=== PATIENT | female | born 1960 | race Caucasian/White ===

== ENCOUNTER → 2017-01-14 | Outpatient (CLI) | payer BC ==
[~2017-01-14] MED LIST: CLARITIN 1010 MG/TAB PO; PROZAC40 MG PO
== END ==
LOC: MC.RAD 08:40
DX: Z12.31 Encounter for screening mammogram for malignant neoplasm of breast (principal)

== ENCOUNTER → 2019-03-20 | Outpatient (CLI) | payer BC | LOC: COL.VAS 07:23 | DX: I08.3 Combined rheumatic disorders of mitral, aortic and tricuspid valves (principal); R60.0 Localized edema ==

== ENCOUNTER 2019-04-12 09:38 | Inpatient (IN) | payer BC ==
[~2019-04-12] VITALS: Ht 160 cm; Wt 69.3 kg
[2019-04-12] VITALS (14 sets, daily range): BP systolic 100–144; BP diastolic 46–83; PULSE 83–98; TEMP 97.9–100
[2019-04-12 10:41] LABS: BASO % 0.3 % (0.0-2.0); EOS # 0.1 (0.0-0.7); GRAN # 4.6 (1.4-6.5); GRAN % 68.7 % (42.2-75.2); LYMPH # 1.5 (1.2-3.4); LYMPH % 22.3 % (20.0-51.0); MEAN CELL VOLUME 72 fl (80.0-100.0); MEAN CORPUSCULAR HGB CONC 26 g/dl (33.0-37.0); MEAN PLATELET VOLUME 9.8 fl (7.4-10.4); MONO # 0.5 (0.1-0.6); MONO % 7.3 % (1.7-9.3); PLATELET COUNT 346 K/mm3 (130-400); RED BLOOD COUNT 2.03 M/mm3 (4.10-5.30); REDCELL DISTRIBUTION WIDTH-CV 23.1 % (11.5-14.5)
[2019-04-12] MEDS ORDERED: DULCOLAX TAB5 MG PO (10:47)
[2019-04-12] MEDS ORDERED: LASIX 20MG TABL20 MG PO (10:47)
[2019-04-12 10:48] LABS: MEAN CORPUSCULAR HEMOGLOBIN 19 pg (27.0-31.0)
[2019-04-12] MEDS ORDERED: MULTIVITAMIN FO1 CAP PO (10:48)
[2019-04-12] MEDS ORDERED: HAIRSKINNAILS PO (10:48)
[2019-04-12 10:49] LABS: ALANINE AMINOTRANSFERASE 19 U/L (9-52); ALBUMIN 4.1 gm/dL (3.5-5.0); ALKALINE PHOSPHATASE 86 U/L (50-136); ANION GAP 12 mmol/L (7-16); AST,SGOT 41 U/L (15-37); BILIRUBIN,TOTAL 0.8 mg/dL (0.0-1.0); BLOOD UREA NITROGEN 15 mg/dL (7-17); CALCIUM 9.1 mg/dL (8.4-10.2); CARBON DIOXIDE 23 mmol/L (22-30); CHLORIDE 104 mmol/L (98-107); CREATININE, serum 0.84 (0.52-1.25); GLUCOSE 100 mg/dL (74-106); HEMOGLOBIN 3.8 g/dl (12.5-16.0); INR 1.1 (0.8-3.0); POTASSIUM 3.8 mmol/L (3.4-5.0); PROTHROMBIN TIME 12.9 SECONDS (9.7-12.8); SODIUM 139 mmol/L (137-145); TOTAL PROTEIN 7.1 gm/dL (6.4-8.2)
[2019-04-12 10:50] LABS: HEMATOCRIT 14.6 % (37.0-47.0)
[2019-04-12 11:01] LABS: TROPONIN-I < 0.012 ng/mL (0.000-0.035)
[2019-04-12 11:23] LABS: IRON,SERUM < 10 ug/dL (35-150)
[2019-04-12 11:32] LABS: TOTAL IRON BINDING CAPACITY 465 ug/dL (265-497)
[2019-04-12] MEDS ORDERED: KLOR-CON SPRIN10 MEQ PO (12:26)
--- NOTE | 2019-04-12 12:30 | NUR ---
Pt arrived to room 319 at this time. She is A/O x4. She is ambulatory, reports some SOB but no dizziness. No pain reported at this time. Pt has two IV's one to each hand, flush without complications. POC discussed with patient who verbalizes understanding. Has no needs at this time. Call light within reach.
--- NOTE | 2019-04-12 18:30 | NUR ---
Report received at bedside from Medina VARELA. PT has family at bedside and is receiving blood transfusion at this time. PT denies wants/needs and has no complaints that need to be addressed. Call light within reach. Will continue to monitor.
--- NOTE | 2019-04-12 19:18 | NUR ---
Patient is A/O. She is resting in bed with two daughters at bedside. Patient just finish receiving 1 unit of blood because patient Hgb was at 3.8 this afternoon. Patient denies any pain or objective allergic reaction to blood. There are no subjective reaction to the blood noted. Patient signed consent for colonoscopy-endoscopy procedure for tomorrow to find any source of bleeding. Patient verbalize she understand the procedure.
--- NOTE | 2019-04-12 19:21 | NUR ---
Second unit of blood started at this time. Protocol followed, verified blood with AVERY Chance. S/sx's of transfusion reaction discussed with patient who verbalizes understanding. This nurse will remain at bedside for first 15 minutes.
--- NOTE | 2019-04-12 19:59 | NUR ---
PT educated on bowel prep instructions, purpose of bowel prep, NPO at midnight, and only clear liquids by mouth with no red dyes. PT states understanding and medication education form provided to PT.
--- NOTE | 2019-04-12 23:00 | NUR ---
PT blood transfusion completed with no s/s of adverse reactions noted. PT laying in bed finishing her bowel prep with no wants/needs at this time. Family at bedside. Call light within reach. Will continue to monitor.
[2019-04-12 23:16] LABS: FOLATE (FOLIC ACID) >20.0 ng/mL (7.0-31.4)
[2019-04-12 23:37] LABS: TRANSFERRIN 347 mg/dL (192-382)
[2019-04-13] VITALS (12 sets, daily range): BP systolic 11–139; BP diastolic 45–63; PULSE 79–88; TEMP 98.1–99
--- NOTE | 2019-04-13 01:35 | NUR ---
PT family rpeorts that PT has blood in the toilet after BM. This singer songwriter notes a light amount of blood colored water in toilet and PT states that she noted spotting on the toilet paper. PT rpeorts Hx of hemmorrhoids and colonoscopy om the AM for blood with toileting. PT assessed and there is no active bleeding noted from client's rectum nor any dried blood on client's buttocks or inside cleft of buttocks. There is a small amount of dried blood noted on PT's underwear. PT and family educated on bleeding and hemmorrhoids as well as to notify this singer songwriter is client has active bleeding noted or blood stains on bedding whren PT gets up to use toilet. PT and family state understanding of education.
--- NOTE | 2019-04-13 03:44 | NUR ---
PT resting in bed and opens eyes as this medical technical writer enters. PT denies any pain or needs/wants at this time. Will continue to monitor. PT states that she has no active bleed from her rectum.
[2019-04-13 03:55] LABS: BASO # 0.1 (0.0-0.2); BASO % 0.7 % (0.0-2.0); EOS # 0.1 (0.0-0.7); EOS % 1.4 % (0-4.0); GRAN # 4.6 (1.4-6.5); GRAN % 65.9 % (42.2-75.2); LYMPH # 1.6 (1.2-3.4); MEAN CELL VOLUME 76 fl (80.0-100.0); MEAN CORPUSCULAR HGB CONC 30 g/dl (33.0-37.0); MEAN PLATELET VOLUME 9.7 fl (7.4-10.4); MONO # 0.6 (0.1-0.6); MONO % 8.4 % (1.7-9.3); PLATELET COUNT 278 K/mm3 (130-400); RED BLOOD COUNT 2.51 M/mm3 (4.10-5.30); REDCELL DISTRIBUTION WIDTH-CV 22.8 % (11.5-14.5)
[2019-04-13 04:00] LABS: CALCIUM 8.3 mg/dL (8.4-10.2); CREATININE, serum 0.8 (0.52-1.25); POTASSIUM 3.7 mmol/L (3.4-5.0)
[2019-04-13 04:01] LABS: HEMOGLOBIN 5.7 g/dl (12.5-16.0); MEAN CORPUSCULAR HEMOGLOBIN 23 pg (27.0-31.0)
--- NOTE | 2019-04-13 04:02 | NUR ---
Pt received from lab that PT's HgB is now 5.8 which is up from yesterday am HgB of 3.8
--- NOTE | 2019-04-13 07:06 | NUR ---
PT report given at bedside to Maynor VARELA
--- NOTE | 2019-04-13 09:09 | NUR ---
Initial visit; Patient thanked Brand Mgr for looking in on her and offering God's blessings.
--- NOTE | 2019-04-13 09:21 | NUR ---
Pt awake and alert, receiving blood, no C/O pain at this time, shift assessments complete, left Pt call light in reach, bed in lowest position.
--- NOTE | 2019-04-13 11:18 | NUR ---
Lead Former met with patient and patient's daughter, Gay to discuss discharge planning. Patient lives in [place] with her , Marcel (ph#[phone]) [address] Fry for primary care. Patient obtains medications from [facility] with no difficulties. Patient does not use any DME and is independent with ADLS. Patient reports she believes she has Advance Directives set up but SW did not locate any in EMR. Patient plans on returning home upon discharge with family providing transportation. No additional needs at this time.
[2019-04-13 13:21] LABS: HEMATOCRIT 26.1 % (37.0-47.0); HEMOGLOBIN 7.8 g/dl (12.5-16.0)
--- NOTE | 2019-04-13 19:34 | NUR ---
Pt resting in the room after her procedures this afternoon, Pt has had several bloody bowel movements since returning, last bowel movement this evening shows less blood than earlier. VS have remained stable.
--- NOTE | 2019-04-13 20:30 | NUR ---
Shift assessment complete. Denies pain. Hemorrhoids still actively bleeding per pt statement. Family at bedside, all questions answered. IV in left hand infiltrated during last few ml's of iron infusion per day shift RN. Site reddened, and slightly swollen. IV removed and extremity elevated, warm compress applied. Primary doctor, Dr. Fry, at bedside. Updated per pt and family request. Patient and family also requesting that IV be left out for the night. Dr. Fry agrees. Will call BOBO Malik to request order for IV to be left out. Patient and family agreeable to plan. Denies further needs at this time. Will continue to monitor.
[2019-04-13 21:15] LABS: HEMATOCRIT 25.9 % (37.0-47.0); HEMOGLOBIN 7.9 g/dl (12.5-16.0)
--- NOTE | 2019-04-14 04:15 | NUR ---
Patient ambulated to BR. Hemorrhoids still bleeding. Denies pain. Daughter at bedside. Will continue to monitor.
[2019-04-14 04:36] VITALS: BP 117/54; PULSE 81; TEMP 99.1
[2019-04-14 08:03] LABS: MEAN CORPUSCULAR HGB CONC 30 g/dl (33.0-37.0); MEAN PLATELET VOLUME 10.1 fl (7.4-10.4); PLATELET COUNT 261 K/mm3 (130-400); RED BLOOD COUNT 2.96 M/mm3 (4.10-5.30); REDCELL DISTRIBUTION WIDTH-CV 21.5 % (11.5-14.5)
[2019-04-14 08:06] LABS: HEMATOCRIT 24.2 % (37.0-47.0); HEMOGLOBIN 7.3 g/dl (12.5-16.0); MEAN CELL VOLUME 82 fl (80.0-100.0); MEAN CORPUSCULAR HEMOGLOBIN 25 pg (27.0-31.0)
[2019-04-14 08:09] LABS: CALCIUM 8.7 mg/dL (8.4-10.2); CREATININE, serum 0.78 (0.52-1.25); POTASSIUM 3.8 mmol/L (3.4-5.0)
[2019-04-14 08:19] VITALS: BP 110/53; PULSE 73; TEMP 98.6
[2019-04-14] MEDS ORDERED: PEPCID 20MG TAB20 MG PO (09:55)
[2019-04-14] MEDS ORDERED: MIRALAX PA17 GM/Dose PO (09:58)
[2019-04-14] MEDS ORDERED: ANUSOL-HC SUPPO25 MG RC (09:58)
[2019-04-14] MEDS ORDERED: FERRO-TIME325 MG PO (09:58)
--- NOTE | 2019-04-14 10:12 | NUR ---
Assessment complete. Pt lying in bed awake, A&O. Daughter was at the bedside at this time. Patient is aware of her plan of care. No IV site as of last night per Drs. orders. No complaints of pain or discomfort at this time. No further needs were expressed. Call light is within reach.
[2019-04-14 10:58] LABS: ANISOCYTOSIS 3+; EOSINOPHIL 4 % (0-4); HYPOCHROMIA 2+; LYMPHOCYTE 13 % (20.0-51.0); NEUTROPHILS 77 % (42.0-75.2); PLATELET ESTIMATE NORMAL (NORMAL)
[2019-04-14 11:44] VITALS: BP 100/52; PULSE 76
--- NOTE | 2019-04-14 12:46 | NUR ---
Patient left the floor at this time. Discharge instructions and follow up appointments were discussed.
== END 2019-04-14 12:47 | disposition home or self-care (01) | DRG 395 ==
LOC: COL.ER 09:38 → MEDICAL 10:31 → EDBEDREQ 11:27 → MEDICAL 15:50
PROVIDERS: Emergency Medicine; Internal Medicine Gastroenterology; Nurse Practitioner Family; Physician Assistant; ADMIT Hospitalist
PROC: 0DB98ZX Excision of Duodenum, Via Natural or Artificial Opening Endoscopic, Diagnostic (ICD-10-PCS; principal; 2019-04-13 12:00)
DX: K64.8 Other hemorrhoids (principal); D50.9 Iron deficiency anemia, unspecified; F32.9 Major depressive disorder, single episode, unspecified; K29.30 Chronic superficial gastritis without bleeding; K59.04 Chronic idiopathic constipation; R01.1 Cardiac murmur, unspecified; E78.5 Hyperlipidemia, unspecified; Z87.01 Personal history of pneumonia (recurrent); Z87.891 Personal history of nicotine dependence
CPT/HCPCS: OP; 99222-AI; 99231-AI; 99239; J2250; J2405; J2765; J2916; J3010; P9016

== ENCOUNTER 2019-04-17 13:08 | Outpatient (RCR) | payer BC ==
[2019-04-17] VITALS (12 sets, daily range): BP systolic 92–141; BP diastolic 33–56; PULSE 78–88; TEMP 98.3–99.4
[~2019-04-17] VITALS: Ht 160 cm; Wt 70.5 kg
[~2019-04-17 13:08] MED LIST changes: +ANUSOL-HC SUPPO25 MG RC; +DULCOLAX TAB5 MG PO; +FERRO-TIME325 MG PO; +HAIRSKINNAILS PO; +KLOR-CON SPRIN10 MEQ PO; +LASIX 20MG TABL20 MG PO; +MIRALAX PA17 GM/Dose PO; +MULTIVITAMIN FO1 CAP PO; +PEPCID 20MG TAB20 MG PO
== END 2019-04-17 20:07 | disposition home or self-care (01) ==
LOC: EUO 13:08
DX: K92.2 Gastrointestinal hemorrhage, unspecified (principal); D64.9 Anemia, unspecified
CPT/HCPCS: J7050; P9016

== ENCOUNTER 2019-04-20 12:43 | Outpatient (RCR) | payer BC ==
[~2019-04-20] VITALS: Ht 160 cm; Wt 72.1 kg
[2019-04-20] VITALS (8 sets, daily range): BP systolic 89–132; BP diastolic 44–59; PULSE 78–91; TEMP 98–98.8
== END 2019-04-20 18:55 | disposition home or self-care (01) ==
LOC: EUO 12:43
DX: K92.2 Gastrointestinal hemorrhage, unspecified (principal); D64.9 Anemia, unspecified
CPT/HCPCS: J7050; P9016

== ENCOUNTER 2019-04-22 21:25 | Inpatient (IN) | payer BC ==
[~2019-04-22] VITALS: Ht 160 cm; Wt 72.1 kg
[2019-04-22 22:04] LABS: COLLECTION METHOD CLEAN CATCH
[2019-04-22 22:07] LABS: BASO % 0.3 % (0.0-2.0); EOS % 0.3 % (0-4.0); GRAN # 8.4 (1.4-6.5); GRAN % 87.7 % (42.2-75.2); LYMPH # 0.6 (1.2-3.4); MEAN CELL VOLUME 93 fl (80.0-100.0); MEAN CORPUSCULAR HGB CONC 29 g/dl (33.0-37.0); MEAN PLATELET VOLUME 9.9 fl (7.4-10.4); MONO # 0.5 (0.1-0.6); MONO % 5.1 % (1.7-9.3); PLATELET COUNT 261 K/mm3 (130-400); RED BLOOD COUNT 2.48 M/mm3 (4.10-5.30); REDCELL DISTRIBUTION WIDTH-CV 21.1 % (11.5-14.5)
[2019-04-22 22:15] LABS: PH 8 (5-8); SQUAMOUS EPITHELIAL 0-2 /hpf; URINE APPEARANCE Hazy; URINE BACTERIA None Seen /hpf; URINE BILIRUBIN Negative (NEGATIVE); URINE BLOOD 1+ (NEGATIVE); URINE COLOR Yellow; URINE GLUCOSE Negative (NEGATIVE); URINE KETONE Negative (NEGATIVE); URINE LEUKOCYTE ESTERASE Negative (NEGATIVE); URINE NITRATE Negative (NEGATIVE); URINE PROTEIN(semi-quant) Negative (NEGATIVE); URINE RBC 0-2 /hpf; URINE UROBILINOGEN Negative (NEGATIVE)
[2019-04-22 22:18] LABS: INR 1.1 (0.8-3.0); PROTHROMBIN TIME 12.6 SECONDS (9.7-12.8)
[2019-04-22 22:23] LABS: HEMATOCRIT 23.1 % (37.0-47.0); HEMOGLOBIN 6.7 g/dl (12.5-16.0); MEAN CORPUSCULAR HEMOGLOBIN 27 pg (27.0-31.0)
[2019-04-22 22:26] LABS: ALANINE AMINOTRANSFERASE 26 U/L (9-52); ALBUMIN 3.1 gm/dL (3.5-5.0); ALKALINE PHOSPHATASE 68 U/L (50-136); ANION GAP 8 mmol/L (7-16); AST,SGOT 37 U/L (15-37); BILIRUBIN,TOTAL 0.7 mg/dL (0.0-1.0); BLOOD UREA NITROGEN 9 mg/dL (7-17); C-REACTIVE PROTEIN 2.1 mg/dL (0.0-0.9); CALCIUM 8.1 mg/dL (8.4-10.2); CARBON DIOXIDE 24 mmol/L (22-30); CHLORIDE 99 mmol/L (98-107); CREATININE, serum 0.99 (0.52-1.25); GLUCOSE 112 mg/dL (74-106); LIPASE 61 U/L (23-300); POTASSIUM 4.1 mmol/L (3.4-5.0); SODIUM 131 mmol/L (137-145); TOTAL PROTEIN 5.8 gm/dL (6.4-8.2)
[2019-04-22 22:38] LABS: TROPONIN-I < 0.012 ng/mL (0.000-0.035)
[2019-04-23] VITALS (283 sets, daily range): BP systolic 85–126; BP diastolic 41–60; PULSE 83–98; TEMP 98.6–101.6; O2SAT 88–100
--- NOTE | 2019-04-23 00:23 | NUR ---
Received telephone report from AVERY Abrams. Patient care transfered.
--- NOTE | 2019-04-23 00:30 | NUR ---
Spoke with hostpitalist prior to patient's arrival. Hostpitalist would like temp to be 99 or less before patient can receive blood transfusion.
--- NOTE | 2019-04-23 02:44 | NUR ---
T 100.0 orally. Administered 650 mg PO Tylenol. Will re-check temperature and will transfuse when T 99.0 or less. Pt denies any other complaints at this time.
--- NOTE | 2019-04-23 03:20 | NUR ---
Temp re-checked; 99.8. Removed extra blanket and provided cool washcloth for forehead.
--- NOTE | 2019-04-23 04:35 | NUR ---
Blood transfusion initiated; Monitoring VS; no complaints from patient at this time. Will continue to monitor.
--- NOTE | 2019-04-23 05:25 | NUR ---
Notified [facility] regarding patient's temp of 100.6. Increased from 99.3 just prior to initiating transfusion. Ordered to continue to monitor as long as patient is asymptomatic. Patient denies any complaints at this time.
[2019-04-23 09:21] LABS: MEAN CELL VOLUME 94 fl (80.0-100.0); MEAN CORPUSCULAR HGB CONC 29 g/dl (33.0-37.0); MEAN PLATELET VOLUME 9.9 fl (7.4-10.4); PLATELET COUNT 228 K/mm3 (130-400); RED BLOOD COUNT 2.64 M/mm3 (4.10-5.30); REDCELL DISTRIBUTION WIDTH-CV 19.9 % (11.5-14.5)
[2019-04-23 09:25] LABS: HEMATOCRIT 24.7 % (37.0-47.0); HEMOGLOBIN 7.2 g/dl (12.5-16.0); MEAN CORPUSCULAR HEMOGLOBIN 27 pg (27.0-31.0)
[2019-04-23 09:39] LABS: CALCIUM 7.6 mg/dL (8.4-10.2); CREATININE, serum 0.86 (0.52-1.25); POTASSIUM 3.8 mmol/L (3.4-5.0)
[2019-04-23 10:21] LABS: ANISOCYTOSIS 2+; BAND 1 % (0-10); HYPOCHROMIA 3+; LYMPHOCYTE 12 % (20.0-51.0); MICROCYTOSIS 1+; NEUTROPHILS 83 % (42.0-75.2)
[2019-04-23 11:27] LABS: RETIC # 0.08 M/mm3 (0.02-0.16); RETIC % 6.4 % (0.5-3.52)
--- NOTE | 2019-04-23 12:24 | NUR ---
Off unit for nuclear med scan
--- NOTE | 2019-04-23 13:08 | NUR ---
Plan: Return home with spouse Taj Porter . Assessment: SW met with patient in room. Patient is a Re-admit.Patient reports that her PCP is Dr. Lisandra sam. Tamir reports that she does not have any DME use. Tamir reports that her POA's are her DTR Lucía and Michaela . Mer reports that she was able to drive prior to this stay but will have her spouse complete transport. Patient reports that she works at the local [employer]. Patient reports that she uses [employer], other specialist are Dr. Mukherjee. Patient reports that after last stay she went home. She followed up with her PCP two days after last DC. Eitantanesha reports that she had medications prescribed and she took them as educated. Patient denies having any additonal services at the time of Dc Action: Will continue to follow for care.
[2019-04-23 16:05] LABS: HEMATOCRIT 27.7 % (37.0-47.0); HEMOGLOBIN 8.3 g/dl (12.5-16.0)
[2019-04-24] VITALS (10 sets, daily range): BP systolic 88–119; BP diastolic 41–57; PULSE 67–86; TEMP 97.6–98.8
--- NOTE | 2019-04-24 00:30 | NUR ---
Patient has an increased temperature. Tylenol given. When rechecked the temperature is still elevated and her blood pressure was 89/41. Notified Dr Cornejo. NS IV bolus and tylenol given as ordered. Also checking H&H at this time. Patient is alert and oriented. She stated she does not feel worse, denies chills or increased pain. No complaints of nausea. No other symptoms noted. No other changes at this time. Call light within reach. Will continue to monitor.
[2019-04-24 00:42] LABS: HEMATOCRIT 23.5 % (37.0-47.0); HEMOGLOBIN 7.1 g/dl (12.5-16.0)
--- NOTE | 2019-04-24 01:00 | NUR ---
Patients Hemoglobin is 7.1, Dr Cornejo notified. Will be transfusing one unit.
--- NOTE | 2019-04-24 01:46 | NUR ---
Blood transfusion started. Protocol followed. Explained to patient what a reaction is and what symptoms to notify the nurse of. Patient verbalized understanding. No other changes at this time. This nurse will be in the room for the first 15 minutes.
--- NOTE | 2019-04-24 02:03 | NUR ---
Patient continues to tolerate transfusion well. Increased transfusion rate to 150ml/hr. BP is coming up slowly. This nurse stayed with patient for the first 15mins of the transfusion. Patient is resting comfortably at this time. No other changes at this time. Call light within reach.
--- NOTE | 2019-04-24 04:00 | NUR ---
Patients blood transfusion has completed. She tolerated it without any complications. Her blood pressure has come back up. Her temperature is back to normal. Patient is wanting to rest before breakfast. NS restarted at ordered rate. No other changes at this time. Call light within reach.
[2019-04-24 07:11] LABS: HEMATOCRIT 29.9 % (37.0-47.0); MEAN CELL VOLUME 92 fl (80.0-100.0); MEAN CORPUSCULAR HEMOGLOBIN 28 pg (27.0-31.0); MEAN CORPUSCULAR HGB CONC 30 g/dl (33.0-37.0); MEAN PLATELET VOLUME 9.9 fl (7.4-10.4); PLATELET COUNT 218 K/mm3 (130-400); RED BLOOD COUNT 3.25 M/mm3 (4.10-5.30); REDCELL DISTRIBUTION WIDTH-CV 18.1 % (11.5-14.5)
[2019-04-24 07:25] LABS: ALBUMIN 2.5 gm/dL (3.5-5.0); BILIRUBIN,TOTAL 0.3 mg/dL (0.0-1.0); CALCIUM 7.6 mg/dL (8.4-10.2); CREATININE, serum 0.87 (0.52-1.25); MAGNESIUM 2.4 mg/dL (1.6-2.3); POTASSIUM 4.2 mmol/L (3.4-5.0)
[2019-04-24 07:27] LABS: PROTHROMBIN TIME 11.9 SECONDS (9.7-12.8)
[2019-04-24 07:49] LABS: BAND 2 % (0-10); LYMPHOCYTE 26 % (20.0-51.0); NEUTROPHILS 69 % (42.0-75.2); PLATELET ESTIMATE NORMAL (NORMAL)
[2019-04-24 07:50] LABS: POIKILOCYTOSIS 1+
--- NOTE | 2019-04-24 09:43 | NUR ---
Patient in bed resting. Alert and oriented x 3. Assessment complete. Fluids infusing per orders. Denies further needs at this time.
--- NOTE | 2019-04-24 19:17 | NUR ---
Patient has done well throughout the day. Minimal needs. Independent in room. Denies further needs at this time. Will report off to slot shift manager.
--- NOTE | 2019-04-24 21:27 | NUR ---
Pt doing okay. Resting in bed. States she is feeling better. No episodes of BM with blood. HGB stable. Alert and oriented with VSS. Took pm meds with no issue, coristone suppository given. pt denies needs at this time. call light within reach, will continue to monitor
--- NOTE | 2019-04-24 22:45 | NUR ---
Pt called nursing in and had c/o dizziness and "not feeling right." Pt c/o mid-sternal chest pain described as "dull." denies sob or any other sx. no blood in stools. no other signs of bleeding. hospitalist notified, labs and ekg ordered. all normal. pt states she went to bathroom and was bloated and had passed flatus and feels "alot better,"
[2019-04-25 00:13] LABS: HEMATOCRIT 29.6 % (37.0-47.0); HEMOGLOBIN 8.9 g/dl (12.5-16.0)
[2019-04-25 03:25] VITALS: BP 114/48; PULSE 68; TEMP 98.1
[2019-04-25 07:05] VITALS: BP 115/49; PULSE 65; TEMP 98.1
[2019-04-25 07:40] LABS: MEAN CELL VOLUME 94 fl (80.0-100.0); MEAN CORPUSCULAR HGB CONC 30 g/dl (33.0-37.0); MEAN PLATELET VOLUME 10.4 fl (7.4-10.4); PLATELET COUNT 226 K/mm3 (130-400)
[2019-04-25 07:44] LABS: HEMOGLOBIN 8.9 g/dl (12.5-16.0); MEAN CORPUSCULAR HEMOGLOBIN 28 pg (27.0-31.0)
[2019-04-25 07:54] LABS: ANION GAP 4 mmol/L (7-16); BLOOD UREA NITROGEN 11 mg/dL (7-17); CALCIUM 7.8 mg/dL (8.4-10.2); CARBON DIOXIDE 23 mmol/L (22-30); CHLORIDE 111 mmol/L (98-107); CREATININE, serum 0.85 (0.52-1.25); GLUCOSE 80 mg/dL (74-106); SODIUM 138 mmol/L (137-145)
--- NOTE | 2019-04-25 08:00 | NUR ---
Patient resting in bed at this time, at bedside. Patient states she would like mirilax with her morning medications this morning; assured the patient that it was scheduled this morning. Patient also states that that she felt ill last night after her suppositories, and declines them this morning. Patient denies needs at this time, call light within reach.
[2019-04-25 08:07] LABS: TROPONIN-I 6 HR POST INITIAL < 0.012 ng/mL (0.000-0.034)
[2019-04-25 08:35] LABS: ANISOCYTOSIS 1+; BAND 4 % (0-10); EOSINOPHIL 2 % (0-4); HYPOCHROMIA 2+; LYMPHOCYTE 46 % (20.0-51.0); METAMYELOCYTE 1 % (0-0); NEUTROPHILS 43 % (42.0-75.2); PLATELET ESTIMATE NORMAL (NORMAL)
--- NOTE | 2019-04-25 10:10 | NUR ---
Several visit attempts; Patient in Isolation, Fish Receiver left card offering spiritual care if patient so desires a visit from Fish Receiver.
[2019-04-25 11:33] VITALS: BP 142/56; PULSE 69; TEMP 98
[2019-04-25] MEDS ORDERED: TAMIFLU 75MG75 MG PO (11:37)
--- NOTE | 2019-04-25 13:35 | NUR ---
Discharge teaching completed. Discussed follow up appointments, discharge instructions and medications. IV removed, catheter intact, hemostasis achieved. Patient denied further questions or needs. Patient confirms that all personal belongings have been gathered. Patient escorted to visitor entrance where she entered a private vehicle.
--- NOTE | 2019-04-25 14:01 | NUR ---
Executive Housekeeper attended clinical rounds with the team. Patient to discharge home today. No additional needs identified at this time.
== END 2019-04-25 13:35 | disposition home or self-care (01) | DRG 194 ==
LOC: COL.ER 21:25 → ICU 23:19 → SURG 04-23 20:10
PROVIDERS: Emergency Medicine; Nurse Practitioner Family; Student in an Organized Health Care Education/Training Program; ADMIT Internal Medicine
DX: J10.1 Influenza due to other identified influenza virus with other respiratory manifestations (principal); K92.2 Gastrointestinal hemorrhage, unspecified; K64.9 Unspecified hemorrhoids; R50.9 Fever, unspecified; I95.9 Hypotension, unspecified; E16.2 Hypoglycemia, unspecified; D50.0 Iron deficiency anemia secondary to blood loss (chronic); R07.9 Chest pain, unspecified
CPT/HCPCS: 99223-AI; 99232-AI; 99233-AI; 99239; A4216; A9560; J0692; J0696; J2270; J2405; J7030; P9016

== ENCOUNTER → 2020-08-28 | Outpatient (CLI) | payer BC ==
[~2020-08-28] MED LIST changes: +TAMIFLU 75MG75 MG PO
== END ==
LOC: MC.RAD 07:55
DX: Z12.31 Encounter for screening mammogram for malignant neoplasm of breast (principal)

== ENCOUNTER → 2023-02-02 | Outpatient (CLI) | payer OTHER | LOC: MC.RAD 08:20 | DX: Z12.31 Encounter for screening mammogram for malignant neoplasm of breast (principal) ==